=== PATIENT | male | born 1960 | race Caucasian/White ===

== ENCOUNTER 2020-10-30 15:20 | Outpatient (REF) | payer OTHER, SELFPAY | END 2020-10-30 15:21 | disposition home or self-care (01) | LOC: HO.LAB 15:20 | PROVIDERS: PCP Internal Medicine; Visit Provider Internal Medicine | DX: Z20.828 Contact with and (suspected) exposure to other viral communicable diseases (principal) | CPT/HCPCS: C9803; U0003 ==

== ENCOUNTER → 2021-06-10 14:25 | Outpatient (BNVA) | payer SELFPAY | PROVIDERS: PCP Internal Medicine; Visit Provider Physician Assistant | DX: Z02.79 Encounter for issue of other medical certificate (principal) ==

== ENCOUNTER 2021-11-11 00:59 | Outpatient (REF) | payer OTHER, SELFPAY | END 2021-11-11 01:00 | disposition home or self-care (01) | LOC: HO.MMNH1L 00:59 | PROVIDERS: Visit Provider Family Medicine | DX: Z13.89 Encounter for screening for other disorder (principal) ==

== ENCOUNTER 2021-11-18 00:32 | Outpatient (REF) | payer OTHER, SELFPAY | END 2021-11-18 00:33 | disposition home or self-care (01) | LOC: HO.MMNH1L 00:32 | PROVIDERS: Visit Provider Family Medicine | DX: Z13.89 Encounter for screening for other disorder (principal) ==

== ENCOUNTER 2021-11-25 01:01 | Outpatient (REF) | payer OTHER, SELFPAY | END 2021-11-25 01:02 | disposition home or self-care (01) | LOC: HO.MMNH1L 01:01 | PROVIDERS: Visit Provider Family Medicine | DX: Z13.89 Encounter for screening for other disorder (principal) ==